=== PATIENT | male | born 1940 | race Caucasian/White ===

== ENCOUNTER → 2017-06-01 08:52 | Outpatient (CLI) | payer MEDICARE, SELFPAY ==
[2017-06-01 10:22] LABS: PSA,Total- Diagnostic 1.65 ng/mL (0.0-4.0)
== END ==
PROVIDERS: Family Provider Preventive Medicine Occupational Medicine; PCP Preventive Medicine Occupational Medicine; Visit Provider Urology
DX: C61 Malignant neoplasm of prostate (principal)
CPT/HCPCS: 36415; 84153

== ENCOUNTER → 2017-06-07 12:45 | Outpatient (CLI) | payer MEDICARE, SELFPAY ==
--- NOTE | 2017-06-07 12:46 | RAD_ITS ---
STUDY: X-RAY - RIGHT KNEE REASON FOR EXAM: Chronic pain. TECHNIQUE: 4 view(s) of the knee. COMPARISON: Radiographs 12/02/2015. FINDINGS: Normal visualized distal femur. Normal visualized proximal tibia and fibula. Normal proximal tibiofibular articulation. There is arthrosis of the medial femorotibial compartment with small marginal osteophytes and joint space loss as on the prior study. Normal lateral femorotibial compartment. There are marginal osteophytes without joint space narrowing of the patellofemoral articulation. There is a small joint effusion. RAD/Knee 4 or More Views IMPRESSION: Arthrosis of the medial femorotibial compartment and marginal osteophytes of the patellofemoral compartment as on the prior study. Small joint effusion. Electronically Signed: Lan Gillespie MD at 12:01 EDT Tel , Service support ,
== END ==
PROVIDERS: Family Provider Preventive Medicine Occupational Medicine; PCP Preventive Medicine Occupational Medicine; Visit Provider Orthopaedic Surgery
DX: M17.11 Unilateral primary osteoarthritis, right knee (principal); M25.761 Osteophyte, right knee
CPT/HCPCS: 73564

== ENCOUNTER → 2017-10-04 09:22 | Outpatient (CLI) | payer MEDICARE, SELFPAY ==
[2017-10-04 11:16] LABS: Albumin, Serum 3.7 g/dL (3.2-5.0)
== END ==
PROVIDERS: Family Provider Preventive Medicine Occupational Medicine; PCP Preventive Medicine Occupational Medicine; Visit Provider Specialist
DX: Z01.812 Encounter for preprocedural laboratory examination (principal)
CPT/HCPCS: 36415; 82040

== ENCOUNTER 2017-10-17 10:58 | Inpatient (IN) | payer MEDICARE, SELFPAY ==
--- NOTE | 2017-10-02 08:21 | PCM.HP.BLA ---
History and Physical DATE OF SURGERY: 10/17/2017 SCHEDULED PROCEDURE: Right Total Knee Arthroplasty HISTORY OF PRESENT ILLNESS: This is a 77-year-old male who has been having ongoing pain in the right knee for several years. Patient states the pain can reach as high as an 8/10. Patient describes his pain as being aching, and sore. Patient has increased pain going up and down stairs, walking of any amount of distance. Pain is located over the medial joint line. Patient does report startup pain. Does complain of stiffness in the right knee. Patient has tried conservative measures consisting of rest and elevation with minimal relief. He has also undergone previous corticosteroid injection that only gave him one month of relief. Patient has been on oral medications consisting of meloxicam with only minimal relief. Patient has been using a cane for the past 5 years. He has also tried bracing for the past 2 years. Despite conservative measures patient continues to have pain with activities of daily living. Patient has medical history pertinent for hypertension. He currently denies any chest pain, shortness of breath, fevers chills, or recent infections. We are obtaining surgical clearance from patient's primary care physician Dr. Judge. After failing conservative measures and discussing all treatment options with Dr. Leroy Cortez, the patient would like to proceed with a right total knee arthroplasty. REVIEW OF SYSTEMS: ROS: Const: Denies change in appetite, fever and weight change. CV: Denies chest pain, heart murmur and irregular heartbeat. Resp: Denies cough, pneumonia, shortness of breath, tuberculosis and wheezing. GI: Denies constipation, diarrhea, heartburn, nausea, rectal itching, bloody stools and vomiting. : Denies incontinence. Musculo: Reports trouble walking, but denies leg swelling, pain and weakness. Skin: Denies Raynaud's, history of shingles and tattoo. Neuro: Denies ambulatory dysfunction, dizziness, numbness/tingling and tremor. Psych: Denies anxiety, insomnia and stress. Jimy/Lymph: Denies anemia, bleeding/bruising tendency and past transfusion. Reviewed, no changes. PAST MEDICAL HISTORY: Advance Care Plan: No Advance Directives Effective Date: 07/10/2017 PMH: Medical Problems: Arthritis, Hard of Hearing, High Blood Pressure Accidents: None Surgical Hx: Hernia Repair, Appendectomy Caleb Catarat - (09/2017) Anesthesia Complications: None Assistive Devices: Glasses, Dentures Reviewed and updated. SOCIAL HISTORY: SH: Marital: .Occupation: Retired.Work Status: Retired.Hand Dominance: Left-Handed. Personal Habits: Cigarette Use: Former Cigarette Smoker.Alcohol: Occasionally.Drug Use: Denies Use.Enjoy Exercising: Daily. Reviewed, no changes. VITALS: Ht: 74 Wt: 218lb Wt k.885 BMI: 28.0 BP: 152/70 Pulse: 74 Resp: 16 T: 97.9 T: 36.6C ALLERGIES: No Known Drug Allergy MEDICATIONS: Meloxicam 15 mg 1 by mouth every day, Amlodipine Besylate 10 mg 1 by mouth every day, Hydrochlorothiazide 12.5 mg 1 by mouth every day, Nexium 20 mg one PO daily, Aspirin 81 mg 1 by mouth every day, Fish Oil 435 mg one PO daily PRE-OP EXAM: General appearance:NORMAL Other: Eyes: Conjunctivae and lids: NORMAL Pupils: ERR Ears, Nose, Mouth, and Throat: NORMAL Other: Inspection of lips, teeth and gums: NORMAL Other: Neck: Examination of neck: no masses noted. Respiratory: Assessment of respiratory effort: NORMAL Other: Auscultation of lungs: clear to auscultation no wheezes, rhonchi or rales. Cardiovascular: Auscultation of heart: regular rate and rhythm, positive systolic murmur. Exam of carotid arteries: NORMAL Other: Gastrointestinal: Exam of abdomen: soft, nontender, nondistended bowel sounds present. PHYSICAL EXAMINATION: Patient walks with an antalgic gait. Patient has tenderness to palpation over the right knee medial joint line. There is mild effusion. Range of motion of the right knee patient lacks 3 of full extension to 120 of flexion. Patient does have varus alignment. Sensations intact to light touch. IMAGING STUDIES: X-rays of the right knee reveal varus alignment with medial joint space narrowing, subchondral sclerosis, and osteophyte formation consistent with severe osteoarthritis. IMPRESSION: 1. Severe right knee osteoarthritis 2. Hypertension PLAN: Dr. Cortez did discuss and review with the patient all treatment options including surgical versus nonsurgical options. Patient does wish to proceed with the above-stated procedure. Potential risks, benefits, and complications of the procedure were discussed in detail including but not limited to , infection, nerve and blood vessel damage, persistent pain, numbness, tingling, paresthesias, blood clot, pulmonary embolism, and requirement for possible further surgery. The patient expressed full understanding and has no further questions for the doctor. Patient does agree to proceed with the above-stated procedure and has signed the surgery consent form. We will undergo preoperative lab work and EKG. ___ I have re-examined the patient. There are no clinical changes since date of exam. ___ See progress notes for changes. ___ Dictated on admission Date: Time: Signature:
[2017-10-02 08:56] VITALS: BP 150/81; PULSE 67; RESP 16; TEMP 36.6; O2SAT 93; BMI 27.4
[2017-10-02 09:29] LABS: Absolute Lymphocyte Count 1.23 X10^3/ul (0.83-4.51); Basophil# 0.04 X10^3/uL; Basophil% 0.5 % (0-1); Eosinophil# 0.39 X10^3/uL; Eosinophils% 5.1 % (0-5); Hemoglobin 14.8 g/dl (13.0-16.5); Lymphocyte # 1.23 X10^3/ul (4.0); Lymphocyte % 15.9 % (19-41); Mean Corp Hgb Conc 33.6 g/gl (32-36); Mean Corpuscular Volume 92.1 fL (80-94); Monocyte# 1.04 X10^3/uL; Monocyte% 13.5 % (0-10); Neutrophil # 4.99 X10^3/uL (2.7-7.7); Neutrophil % 64.6 % (47-70); Platelet Count 202 K/mm3 (150-450); RBC Distribution Width CV 13.1 % (11.6-14.6); RBC Distribution Width SD 43.2 fl (35.1-43.9); Red Blood Count 4.78 M/mm3 (4.6-6.2); White Blood Count 7.7 K/mm3 (4.4-11.0)
[2017-10-02 09:37] LABS: POSITIVE COUNT NO; POSITIVE DIFFERENTIAL NO; POSITIVE MORPHOLOGY NO
[2017-10-02 10:01] LABS: Anion Gap 4 (5-15); BUN 18 mg/dL (7-18); BUN/Creat Ratio 14.9 RATIO (10-20); Calcium,Total 9.3 mg/dL (8.5-10.1); Chloride 105 mmol/L (98-107); Creatinine, Serum 1.21 mg/dL (0.70-1.30); EST Glomerular Filtration Rate 62 mL/min (>60); Est Glom Filt Rate - Afr Amer 75 mL/min (>60); Estimated Creatinine Clearance 60.14 ml/min; Glucose 99 mg/dL (74-106); Potassium 4.4 mmol/L (3.5-5.1); Sodium Level 140 mmol/L (136-145)
[2017-10-17] VITALS (8 sets, daily range): BP systolic 117–148; BP diastolic 59–77; PULSE 51–70; RESP 16–18; TEMP 36.1–36.8; O2SAT 93–97; BMI 27.4
[2017-10-17] MEDS: oxyCODONE HCl Cr 10 MG Tablet PO (11:39)
[2017-10-17] MEDS: Acetaminophen 500 MG Tablet 1000 MG PO ×2 (11:40→20:55)
[2017-10-17] MEDS: Celecoxib 200 MG Capsule 400 MG PO (11:40)
[2017-10-17] MEDS: Lactated Ringers 1,000 ML 999 ML IV (11:54)
[2017-10-17] MEDS: Scopolamine 1mg/72hr Patch 1 PATCH TD (12:20)
[2017-10-17] MEDS: Cefazolin 2 GM in 0.9% Normal Saline 100 ML IV (13:20)
--- NOTE | 2017-10-17 14:50 | PCM.OPRPT ---
Report of Operation Date of Procedure: 10/17/17 Pre-Operative Diagnosis: Right knee primary osteoarthritis Post-Operative Diagnosis: Right knee primary osteoarthritis Surgery/Procedure Performed:: Right total knee arthroplasty Description of Surgical Findings:: Stable knee with good patella tracking director of head start: Francisco Kelly Type of Anesthesia:: Spinal Anesthesiologist: Sam Quigley Special Medications: 2 g Ancef, 1 g TXA at incision, 1 g TXA closure, 10 mg Decadron, joint cocktail (5 mg Duramorph, 30 mL of 0.5% Ropivicaine, 1000 units of epinephrine, 30 mg of Toradol) Specimen's removed: Bony cuts Estimated Blood Loss (mL): 50 Fluids Replaced: 1000 mL crystalloid Description of Procedure: Implants used: 1. Westview size 7 triathlon cruciate retaining distal femoral component 2. Westview size 8 universal tibial baseplate 3. Westview X3 11 mm CS polyethylene 4. Jadon X3 40 mm asymmetric patella Brief history operative indications: 77-year-old m with history of right knee osteoarthritis with radiographic findings with loss of joint space, osteophyte formation and subchondral sclerosis. Failed conservative measures as mentioned in the H&P. Discussion of total knee arthroplasty as well as risk and benefits were discussed the patient including but not limited to blood loss, DVTs, PEs, neurovascular damage, general risk of anesthesia including loss of life, and stiffness or instability were discussed with patient. Patient demonstrated understanding and was able to sign informed consent. Procedure: On the date of procedure patient's right lower extremity was marked in the preoperative area. The patient was then taken back to the operating room where the patient was placed on the table in the supine position. All bony prominences were identified a well-padded. Anesthesia assumed control of the C-spine and airway and remained controlled throughout the remainder of the procedure. A tourniquet was placed on the right upper thigh and the leg was prepped in a sterile fashion. The surgeon then scrubbed at this time. Upon reentering the room the right lower extremity was draped in a standard orthopedic fashion. A timeout was then called and everyone agreed upon the side, the site, the procedure to be performed, patient's identity and antibiotics given. Esmarch bandage was used to exsanguinate the extremity and the tourniquet was placed up to 250 mmHg with the knee in flexion. A midline skin incision was made and sharp dissection was taken down through skin subcutaneous tissue and fat. The standard medial parapatellar incision was made and the patella was subluxed laterally. The standard deep MCL release was done and the fat pad was resected. Next our attention was directed to the femur. Navigation pins were placed, navigation was registered. The distal femoral cutting block was pinned into place and 10 mm of distal femur resection was completed. The distal femoral cut was verified with navigation. The knee was then placed in deep flexion in the standard haku sizing guide was used to place the femoral component in 3? external rotation based on the posterior condyles. A size 7 4-in-1 cutting block was selected and pinned into place. The anterior cut was then made and checked for notching. The subsequent anterior chamfer cuts, posterior condylar cuts and posterior chamfer cuts were made while ensuring the MCL and LCL were protected. Our attention was then turned to the tibia where the navigation pins were placed, navigation was registered. Midisolaire tibial cutting guide was used to make the appropriate tibial cut 90 degrees from the mechanical axis. Navigation was then used to verify the cut. A size 8 tibial base plate was selected. the knee was flexed to 90 degrees and the soft tissues and posterior osteophytes were removed from the joint. 40 cc of the periarticular injection was injected into the posterior medial corner of the joint. The appropriate trials were then placed on the femur and tibia. A trial polyethylene was trialed to ensure proper balancing and stability of the knee. Patella tracking, was then verified and corrected appropriately as needed. The appropriate tibial internal rotation was then marked with a bovie. Our attention was then directed to the patella. The patella was everted and a flat resection was made. The lug holes were drilled and the patella trial was placed. Patellar tracking was checked and deemed appropriate. Once we were happy lug holes were drilled for the femur and trial components were removed. the tibia was subluxed and pinned into place and the keel was punched. Final components were verified and opened, and cement was mixed in a vacuum. Westview Simplex cement was used. The wound was copiously irrigated with normal saline. When the cement was ready the components were impacted into place the patella was then cemented into place. The trial poly component was placed and the knee was placed in full extension. All excess cement was removed in the process. Once the cement had cured the tracking, alignment and balance were verified and a size 11 mm polyethylene component was placed. Once the final components were placed the wound was copiously irrigated with normal saline solution and the periarticular injection was given. The wound was closed in a layer sood fashion using #1 vicryl interrupted sutures for the arthrotomy, 2-0 interrupted Vicryl suture for the subcuticular layer and kevin for final skin closure. A sterile compressive dressing was then placed. The patient was then awakened from anesthesia, transferred to the rnazareth and transferred to the PACU for recovery. Post op plan DVT ppx: ASA 81mg, thigh high compression stockings Follow up: in office in 2 weeks for wound check PT: to start POD #0 at hospital, outpatient PT should be arranged. My physician mechanic's assistant was a vital part of this case. He was important in appropriate retraction during the case, and protection of soft tissues during bony cuts. His intimate knowledge of the case and my steps aided in safe and expedient completion of the procedure as well as appropriate position of the leg during the case. He was also vital in assisting with closure under my direct supervision. Grafts/Implants Used: Jadon triathlon press-fit total knee - Complications None - Admit VTE Documentation VTE Present on Admission: No VTE Mechan Device Prophylaxis: SCD's, Thigh High RITU Hose VTE Pharm Prophylaxis ordered?: Yes
[2017-10-17] MEDS: oxyCODONE 5 MG Tablet PO (19:16)
[2017-10-17] MEDS: Senna/Docusate Sodium 1 Tablet 2 TABLET PO (20:55)
[2017-10-17] MEDS: Aspirin 81 MG TAB.CHEW PO (20:55)
[2017-10-17] MEDS: Cefazolin 1 GM/50 ML BAG IV (20:55)
[2017-10-17] MEDS: Lactated Ringers 1,000 ML 125 ML IV (22:15)
[2017-10-18 02:45] VITALS: BP 120/62; PULSE 59; RESP 16; TEMP 36.5; O2SAT 95
[2017-10-18] MEDS: Acetaminophen 500 MG Tablet 1000 MG PO ×3 (06:24→21:23)
[2017-10-18] MEDS: Cefazolin 1 GM/50 ML BAG IV (06:24)
[2017-10-18 06:34] LABS: Hematocrit 34.9 % (40-54); Hemoglobin 11.2 g/dl (13.0-16.5); Mean Corp Hgb Conc 32.1 g/gl (32-36); Mean Corpuscular Hgb 30.4 pg (27.0-32.0); Mean Corpuscular Volume 94.8 fL (80-94); Mean Platelet Vol. 11.9 fl (6.2-12.0); Platelet Count 185 K/mm3 (150-450); RBC Distribution Width CV 13.2 % (11.6-14.6); RBC Distribution Width SD 45.9 fl (35.1-43.9); Red Blood Count 3.68 M/mm3 (4.6-6.2)
[2017-10-18 06:39] LABS: Anion Gap 6 (5-15); BUN 22 mg/dL (7-18); BUN/Creat Ratio 17.9 RATIO (10-20); Chloride 108 mmol/L (98-107); Creatinine, Serum 1.23 mg/dL (0.70-1.30); EST Glomerular Filtration Rate 60 mL/min (>60); Est Glom Filt Rate - Afr Amer 73 mL/min (>60); Estimated Creatinine Clearance 59.16 ml/min; Glucose 108 mg/dL (74-106); Potassium 4.3 mmol/L (3.5-5.1); Scan Indicated on CBC? Y/N NO; Sodium Level 143 mmol/L (136-145)
[2017-10-18] MEDS: oxyCODONE 5 MG Tablet PO (07:32)
[2017-10-18 07:34] VITALS: BP 101/63; PULSE 64; RESP 16; TEMP 36.7; O2SAT 95
--- NOTE | 2017-10-18 07:39 | PCM.PN.ORT ---
Subjective: The patient was sitting in bedside chair upon examination. Patient denies any chest pain, shortness of breath, dizziness, lightheadedness, nausea or vomiting, or calf pain. Pain is controlled on medications. No adverse overnight events. Patient is complaining of pain in his right knee. Nursing states they had to change his dressing overnight due to saturation distally. Objective: Vital signs stable and afebrile. Patient is able to plantarflex and dorsiflex actively. Sensation is intact to light touch to saphenous, sural, superficial and deep peroneal, and tibial distribution. Dressing is clean dry and intact. However this is the second Mepilex dressing over the main incision. We will continue to monitor drainage. Negative Homans bilaterally, negative signs and symptoms of DVT. - Physical Exam General: Alert, Oriented x3, Cooperative, No apparent distress Vital Signs Temp Pulse Resp BP Pulse Ox 98.1 F 64 16 101/63 95 10/18/17 07:34 10/18/17 07:34 10/18/17 07:34 10/18/17 07:34 10/18/17 07:34 Oxygen Delivery Method Room Air Weight: 99.7 kg Body Mass Index (BMI) 27.4 Intake and Output for Last 24 Hours 10/16/17 10/17/17 10/18/17 23:59 23:59 23:59 Intake Total 1300 / 1300 2231 / 2231 Balance 1300 / 1300 2231 / 2231 Laboratory Tests Past 24 Hrs 10/18/17 10/18/17 05:45 05:45 WBC 9.0 RBC 3.68 L Hgb 11.2 L Hct 34.9 L MCV 94.8 H MCH 30.4 MCHC 32.1 RDW 13.2 RDW Differential 45.9 H Plt Count 185 MPV 11.9 Sodium 143 Potassium 4.3 Chloride 108 H Carbon Dioxide 29.0 Anion Gap 6 BUN 22 H Creatinine 1.23 Estim Creat Clear Calc 59.16 Est GFR (MDRD) Af Amer 73 Est GFR (MDRD) Non-Af 60 BUN/Creatinine Ratio 17.9 Glucose 108 H Calcium 8.0 L Medical Necessity - Tobacco Use Smoking Status: Former smoker Tobacco Use: Non-smoker Assessment/Plan 1. S/P right total knee arthroplasty POD #1 2. Continue Pain Medications: Tylenol and OxyIR 3. DVT Prophylaxis: Aspirin 81 mg twice daily 4. PT/OT: Weightbearing as tolerated 5. H & H: 11.2/34.9, asymptomatic 6. Encouraged Incentive Spirometry 7. Disposition: Plan will be for possible discharge home tomorrow. Continue to watch drainage today from incision. May need to use sandbag if continues to drain.
[2017-10-18] MEDS: Aspirin 81 MG TAB.CHEW PO ×2 (07:47→17:03)
[2017-10-18] MEDS: Multivitamins,Therapeutic Tablet 1 TABLET PO (07:47)
[2017-10-18] MEDS: HYDROCHLOROTHIAZIDE 12.5 MG CAPSULE PO (09:44)
[2017-10-18] MEDS: Pantoprazole Sodium 20 MG Tablet PO (09:44)
[2017-10-18] MEDS: amLODIPine 10 MG Tablet PO (09:44)
[2017-10-18] MEDS: Meloxicam 7.5 MG Tablet PO ×2 (09:44→21:23)
[2017-10-18] MEDS: Senna/Docusate Sodium 1 Tablet 2 TABLET PO ×2 (09:45→21:23)
[2017-10-18] MEDS: Famotidine 20 MG Tablet PO (09:45)
--- NOTE | 2017-10-18 13:19 | CASEMGMT ---
ISIDRA IZQUIERDO Face to Face with patient for initial transition planning/care coordination assessment. RN CM introduced self and role at [facility]. Patient lying in bed, alert and oriented. Patient willing to participate in assessment and is able to answer all questions appropriately. Care providers, pharmacy, and demographics verified. See link attached. Patient wishes to discharge home and is setup with [facility] for outpatient therapy with family providing transportation. Patient states he has no further needs or concerns at this time. CM to follow for discharge planning needs that may arise. Disposition Plan: Patient to discharge home with outpatient therapy, family support, and follow-up plans. Miranda CAVANAUGHN, RN, CM
--- NOTE | 2017-10-18 13:30 | PCA ---
pt in therapy
[2017-10-18 14:18] VITALS: BP 125/64; PULSE 80; RESP 16; TEMP 37.3; O2SAT 95
[2017-10-18 20:00] VITALS: BP 116/91; PULSE 79; RESP 16; TEMP 37.4; O2SAT 95
[2017-10-19 02:00] VITALS: BP 134/58; PULSE 66; RESP 16; TEMP 36.9; O2SAT 96
[2017-10-19 06:04] LABS: Hematocrit 33.9 % (40-54); Hemoglobin 11.3 g/dl (13.0-16.5); Mean Corp Hgb Conc 33.3 g/gl (32-36); Mean Corpuscular Hgb 31.5 pg (27.0-32.0); Mean Corpuscular Volume 94.4 fL (80-94); Mean Platelet Vol. 12.3 fl (6.2-12.0); Platelet Count 161 K/mm3 (150-450); RBC Distribution Width CV 12.9 % (11.6-14.6); Red Blood Count 3.59 M/mm3 (4.6-6.2); White Blood Count 10.8 K/mm3 (4.4-11.0)
[2017-10-19 06:05] LABS: Scan Indicated on CBC? Y/N NO
[2017-10-19] MEDS: Acetaminophen 500 MG Tablet 1000 MG PO (06:27)
[2017-10-19 07:33] VITALS: BP 92/61; PULSE 75; RESP 16; TEMP 36.7; O2SAT 97
[2017-10-19] MEDS: oxyCODONE 5 MG Tablet PO (07:40)
[2017-10-19] MEDS: Aspirin 81 MG TAB.CHEW PO (07:40)
[2017-10-19] MEDS: Multivitamins,Therapeutic Tablet 1 TABLET PO (07:40)
--- NOTE | 2017-10-19 08:53 | PCA ---
pt in therapy
--- NOTE | 2017-10-19 09:17 | PCM.PN.ORT ---
Subjective: The patient was sitting in bedside chair upon examination. Patient denies any chest pain, shortness of breath, dizziness, lightheadedness, nausea or vomiting, or calf pain. Pain is controlled on medications. No adverse overnight events. Overall patient is doing well. He has tolerated physical therapy. Patient has had no further drainage from the incision. Objective: Vital signs stable and afebrile. Patient is able to plantarflex and dorsiflex actively. Sensation is intact to light touch to saphenous, sural, superficial and deep peroneal, and tibial distribution. Dressing is clean dry and intact. Patient had one dressing change yesterday morning and there is been no drainage since. Negative Homans bilaterally, negative signs and symptoms of DVT. - Physical Exam General: Alert, Oriented x3, Cooperative, No apparent distress Vital Signs Temp Pulse Resp BP Pulse Ox 98.0 F 75 16 92/61 97 10/19/17 07:33 10/19/17 07:33 10/19/17 07:33 10/19/17 07:33 10/19/17 07:33 Oxygen Delivery Method Room Air Weight: 99.7 kg Body Mass Index (BMI) 27.4 Intake and Output for Last 24 Hours 10/17/17 10/18/17 10/19/17 23:59 23:59 23:59 Intake Total 1300 / 1300 2231 / 2231 Balance 1300 / 1300 2231 / 2231 Laboratory Tests Past 24 Hrs 10/19/17 05:25 WBC 10.8 RBC 3.59 L Hgb 11.3 L Hct 33.9 L MCV 94.4 H MCH 31.5 MCHC 33.3 RDW 12.9 RDW Differential 43.0 Plt Count 161 MPV 12.3 H Medical Necessity - Tobacco Use Smoking Status: Former smoker Tobacco Use: Non-smoker Assessment/Plan 1. S/P right total knee arthroplasty POD #2 2. Continue Pain Medications: Tylenol and OxyIR 3. DVT Prophylaxis: Aspirin 81 mg twice daily 4. PT/OT: Weightbearing as tolerated 5. H & H: 11.3/33.9, asymptomatic 6. Encouraged Incentive Spirometry 7. Disposition: Orthopedically stable, plan is for discharge home today. Prescriptions will be E scribed to [facility]. Patient will follow-up per postop instructions
--- NOTE | 2017-10-19 09:27 | PCM.DC.TKR ---
Discharge Diet: No Restrictions Discharge Activity: May Not Drive May shower in (days): 1 - Turned dressing away from water Ice area for (Minutes): 20 - every hour while awake. Weight Bearing Status: Weight bearing as tolerated Elevate: Operative Extremity Additional Activity Instructions:: Wear elastic stockings for 2 weeks after your surgery. Call your doctor if your incision/area has: Continuous Slow Oozing, Sudden Increased Bleeding, Increased Pain/ Swelling, Increased Redness, Foul Smelling Discharge Call your doctor if you observe: Fever of 101 or Higher, Coldness, Increased Pain, Numbness or Tingling, Change in Color, Calf discomfort, Uncontrolled pain Remove Dressing in (days):: 3 - Okay to remove on October 22, 2017 Additional Instructions: Follow [facility] postop instructions Allergies/Adverse Reactions: Allergies No Known Allergies Allergy (Verified 10/17/17 11:20) Medications to take at Discharge Amlodipine Besylate [Norvasc] 10 mg PO DAILY 04/29/16 Esomeprazole Mag Trihydrate [Nexium] 20 mg PO DAILY 04/29/16 Multivitamin [Multiple Vitamins] 1 ea PO DAILY 04/29/16 Hydrochlorothiazide 12.5 mg PO DAILY 10/02/17 Acetaminophen [Tylenol] 1,000 mg PO Q8 #90 tab 10/19/17 Aspirin [Aspirin, Baby] 81 mg PO BIDCM #60 tab.chew 10/19/17 Meloxicam [Mobic] 7.5 mg PO BID #30 tab 10/19/17 Oxycodone [Oxyir] 5 - 10 mg PO Q4H PRN PRN 6 Days #72 tab 10/19/17 Senna/Docusate Sodium [Senokot-S] 2 tab PO BID #20 tab 10/19/17 The following prescriptions were given: Oxycodone [Oxyir] 5 - 10 mg PO Q4H PRN PRN 6 Days #72 tab PRN Reason: Mod-Severe Pain (-11/29) Acetaminophen [Tylenol] 1,000 mg PO Q8 #90 tab Aspirin [Aspirin, Baby] 81 mg PO BIDCM #60 tab.chew Meloxicam [Mobic] 7.5 mg PO BID #30 tab Senna/Docusate Sodium [Senokot-S] 2 tab PO BID #20 tab Primary Care Physician: Dewey Ortiz DO [Primary Care Provider] - Test Results: Test results from this visit will be discussed in further detail at your follow-up appointment, if applicable. Please Follow Up With: [facility] When: 10/20/17 Please Follow Up With: Francisco Kelly PA-C When: 10/27/17 @ 8:30 am
[2017-10-19] MEDS: Meloxicam 7.5 MG Tablet PO (09:41)
[2017-10-19] MEDS: HYDROCHLOROTHIAZIDE 12.5 MG CAPSULE PO (09:41)
[2017-10-19] MEDS: amLODIPine 10 MG Tablet PO (09:46)
[2017-10-19] MEDS: Famotidine 20 MG Tablet PO (09:46)
[2017-10-19] MEDS: Pantoprazole Sodium 20 MG Tablet PO (09:46)
[2017-10-19] MEDS: Senna/Docusate Sodium 1 Tablet 2 TABLET PO (09:47)
[2017-10-19 12:56] VITALS: BP 132/67; PULSE 89; TEMP 36.7; O2SAT 984
== END 2017-10-19 13:28 | disposition home or self-care (01) | DRG 470 ==
LOC: ACINP 10:59 → MS3 15:00
PROVIDERS: Admitting Provider Specialist; Family Provider Preventive Medicine Occupational Medicine; PCP Preventive Medicine Occupational Medicine; Visit Provider Specialist
PROC: 0SRC0J9 Replacement of Right Knee Joint with Synthetic Substitute, Cemented, Open Approach (ICD-10-PCS; CPT 27447; principal; 2017-10-17 12:30)
DX: M17.11 Unilateral primary osteoarthritis, right knee (principal); I10 Essential (primary) hypertension; Z87.891 Personal history of nicotine dependence
CPT/HCPCS: 36415; 73560; 80048; 85025; 85027; 87081; 93005; 97110; 97116; 97162; 97166; 97530; 99251; C1776; J7120; G0463

== ENCOUNTER → 2017-11-27 09:17 | Outpatient (CLI) | payer MEDICARE, SELFPAY ==
[2017-11-27 11:09] LABS: PSA,Total- Diagnostic 0.85 ng/mL (0.0-4.0)
== END ==
PROVIDERS: Family Provider Preventive Medicine Occupational Medicine; PCP Preventive Medicine Occupational Medicine; Referring Provider Urology; Visit Provider Urology
DX: C61 Malignant neoplasm of prostate (principal)
CPT/HCPCS: 36415; 84153

== ENCOUNTER → 2018-06-07 11:34 | Outpatient (CLI) | payer MEDICARE, SELFPAY ==
[2017-10-17 16:45] VITALS: BMI 27.4
== END ==
PROVIDERS: Family Provider Preventive Medicine Occupational Medicine; PCP Preventive Medicine Occupational Medicine; Referring Provider Urology; Visit Provider Urology
DX: C61 Malignant neoplasm of prostate (principal)
CPT/HCPCS: 36415; 84153

== ENCOUNTER → 2018-12-11 10:27 | Outpatient (CLI) | payer MEDICARE, SELFPAY ==
[2017-10-17 16:45] VITALS: BMI 27.4
[2018-12-11 11:37] LABS: PSA,Total- Diagnostic 0.88 ng/mL (0.0-4.0)
== END ==
PROVIDERS: Family Provider Preventive Medicine Occupational Medicine; PCP Preventive Medicine Occupational Medicine; Referring Provider Urology; Visit Provider Urology
DX: R97.20 Elevated prostate specific antigen [PSA] (principal)
CPT/HCPCS: 36415; 84153

== ENCOUNTER → 2019-06-13 13:51 | Outpatient (CLI) | payer MEDICARE, SELFPAY ==
[2017-10-17 16:45] VITALS: BMI 27.4
[2019-06-13 15:35] LABS: PSA,Total- Diagnostic 0.38 ng/mL (0.0-4.0)
== END ==
PROVIDERS: PCP Preventive Medicine Occupational Medicine; Referring Provider Urology; Visit Provider Urology
DX: C61 Malignant neoplasm of prostate (principal)
CPT/HCPCS: 36415; 84153

== ENCOUNTER → 2019-12-12 11:40 | Outpatient (CLI) | payer MEDICARE, SELFPAY ==
[2017-10-17 16:45] VITALS: BMI 27.4
[2019-12-12 13:21] LABS: PSA,Total- Diagnostic 0.46 ng/mL (0.0-4.0)
== END ==
PROVIDERS: PCP Preventive Medicine Occupational Medicine; Referring Provider Urology; Visit Provider Urology
DX: C61 Malignant neoplasm of prostate (principal)
CPT/HCPCS: 36415; 84153

== ENCOUNTER 2020-03-12 08:51 | Outpatient (RCR) | payer MEDICARE, SELFPAY ==
[2017-10-17 16:45] VITALS: BMI 27.4
== END 2020-03-12 23:59 ==
LOC: IMMUN 08:51
PROVIDERS: PCP Preventive Medicine Occupational Medicine; Visit Provider Family Medicine
DX: Z23 Encounter for immunization (principal)
CPT/HCPCS: 0011A; 0012A; 91301

== ENCOUNTER → 2020-12-15 11:00 | Outpatient (CLI) | payer MEDICARE, SELFPAY ==
[2020-12-15 13:38] LABS: PSA,Total- Diagnostic 0.46 ng/mL (0.0-4.0)
== END ==
PROVIDERS: PCP Preventive Medicine Occupational Medicine; Referring Provider Urology; Visit Provider Urology
DX: C61 Malignant neoplasm of prostate (principal)
CPT/HCPCS: 36415; 84153

== ENCOUNTER → 2021-12-22 | Outpatient (CLI) | payer MEDICARE, SELFPAY ==
[2021-12-22 13:38] LABS: PSA,Total- Diagnostic 0.42 ng/mL (0.0-4.0)
== END | disposition home or self-care (01) ==
PROVIDERS: PCP Preventive Medicine Occupational Medicine; Visit Provider Urology
DX: C61 Malignant neoplasm of prostate (principal)
CPT/HCPCS: 36415; 84153

== ENCOUNTER → 2022-12-22 | Outpatient (CLI) | payer MEDICARE, SELFPAY ==
[2022-12-22 11:25] LABS: PSA,Total- Diagnostic 0.68 ng/mL (0.0-4.0)
== END | disposition home or self-care (01) ==
PROVIDERS: PCP Preventive Medicine Occupational Medicine; Referring Provider Registered Nurse; Visit Provider Registered Nurse
DX: C61 Malignant neoplasm of prostate (principal)
CPT/HCPCS: 36415; 84153

== ENCOUNTER → 2023-08-14 | Outpatient (CLI) | payer MEDICARE, SELFPAY ==
--- NOTE | 2023-08-14 07:56 | ART_ITS ---
Reason For Study: Claudication Procedure A bilateral lower extremity continuous wave Doppler with analog waveform analysis,segmental pressures,and ankle brachial indexes with exercise. Left Segmental Pressures Left brachial= 161mmHg. Left posterior tibial artery = 197mmHg. Left dorsalis pedis artery = 173mmHg. The left posterior tibial artery waveforms are triphasic. The left dorsalis pedis waveforms are triphasic. Right Segmental Pressures Right brachial= 159mmHg. Right posterior tibial artery = 179mmHg. Right dorsalis pedis artery = 164mmHg. The right posterior tibial artery waveforms are triphasic. The right dorsalis pedis waveforms are triphasic. Indices The right ankle brachial index by the posterior tibial artery is 1.11. The right ankle brachial index by the dorsalis pedis is 1.02. The right post exercise ankle brachial index is 1.31. The left ankle brachial index by the posterior tibial artery is 1.22. The left ankle brachial index by the dorsalis pedis is 1.07. The left post exercise ankle brachial index is 1.22. VL/Lower Ext Art Exam w/ Exercise Interpretation Summary Triphasic Doppler waveforms are noted at ankle level bilaterally. Pulse-volume recordings appear satisfactory at all levels bilaterally. Resting ankle-brachial indices are norm al bilaterally. The patient ambulated for 5 minutes at 1.5 MPH at a 5% incline, following which ank le pressures augmented bilaterally, a normal physiological response. There is no evidence of significant arterial occlusive disease in the lower ext remities bilaterally. Ordering Physician: Dewey Ortiz Referring Physician: David Cooney MD Performed By: Ryan Eller RVT and Student
== END | disposition home or self-care (01) ==
PROVIDERS: PCP Preventive Medicine Occupational Medicine; Referring Provider Preventive Medicine Occupational Medicine; Visit Provider Preventive Medicine Occupational Medicine
DX: I73.9 Peripheral vascular disease, unspecified (principal)
CPT/HCPCS: 93924

== ENCOUNTER → 2024-01-09 | Outpatient (CLI) | payer MEDICARE, SELFPAY | END | disposition home or self-care (01) | LOC: LAB 08:58 | PROVIDERS: PCP Preventive Medicine Occupational Medicine; Referring Provider Nurse Practitioner; Visit Provider Nurse Practitioner | DX: Z12.5 Encounter for screening for malignant neoplasm of prostate (principal) | CPT/HCPCS: 36415; 84153; G0103 ==

== ENCOUNTER → 2024-01-10 | Outpatient (CLI) | payer MEDICARE, SELFPAY ==
[2024-01-10 10:55] LABS: PSA,Total- Diagnostic 0.83 ng/mL (0.0-4.0)
== END | disposition home or self-care (01) ==
LOC: LAB 09:18
PROVIDERS: PCP Preventive Medicine Occupational Medicine; Referring Provider Nurse Practitioner; Visit Provider Nurse Practitioner
DX: C61 Malignant neoplasm of prostate (principal)
CPT/HCPCS: 36415; 84153

== ENCOUNTER → 2025-01-13 | Outpatient (CLI) | payer MEDICARE, SELFPAY ==
[2025-01-13 12:55] LABS: PSA,Total- Diagnostic 0.97 ng/mL (0.00-4.00)
== END | disposition home or self-care (01) ==
PROVIDERS: PCP Preventive Medicine Occupational Medicine; Referring Provider Urology; Visit Provider Urology
DX: C61 Malignant neoplasm of prostate (principal)
CPT/HCPCS: 36415; 84153